=== PATIENT | female | born 1965 | race Two or more races ===

== ENCOUNTER 2017-03-08 16:02 | Emergency (ER) | payer OTHER ==
[~2017-03-08] VITALS: Ht 175.3 cm; Wt 77.1 kg
[2017-03-08 16:35] LABS: Basophils # (auto) 0 uL; Basophils % (auto) 0.6 % (0.0-2.0); Eosinophils # (auto) 0 uL; Eosinophils % (auto) 0.5 % (0.0-7.0); Hematocrit 45.9 % (36.0-46.0); Hemoglobin 15.5 g/dL (12.2-16.2); Lymphocytes # (auto) 1.5 uL; Mean Corpuscular Hemoglobin 31.1 pg (28.0-32.0); Mean Corpuscular Hgb Conc. 33.8 g/dL (32.0-36.0); Mean Corpuscular Volume 92.1 fL (80.0-100.0); Mean Platelet Volume 10.8 fL (6.9-10.8); Monocytes # (auto) 0.3 uL; Neutrophils % (auto) 51.9 % (37.0-80.0); Nucleated Red Blood Cells % 0.1 %; Platelet Count (auto) 197 10^3/uL (140-450); Red Cell Distribution Width 13.2 % (11.8-14.3); White Blood Cell 3.8 10^3/uL (4.4-10.8)
[2017-03-08 16:58] LABS: Albumin 4.3 g/dL (3.4-5.0); Anion Gap 9 (5-15); Aspartate Aminotransferase 26 U/L (15-37); BUN/Creatinine Ratio 14.1; Blood Urea Nitrogen 11 mg/dL (7-18); Calcium 8.8 mg/dL (8.5-10.1); Carbon Dioxide 26 mmol/L (21-32); Chloride 102 mmol/L (98-107); GFR African American 101 mL/min; GFR Non-African American 83 mL/min; Glucose 124 mg/dL (74-106); Magnesium 2.1 mg/dL (1.6-2.6); Sodium 137 mmol/L (136-145)
[2017-03-08 17:03] LABS: Alkaline Phosphatase 67 U/L (45-117); Bilirubin, Total 0.4 mg/dL (0.2-1.0); Total Protein 8.4 g/dL (6.4-8.2)
[2017-03-08 17:08] LABS: Potassium 2.8 mmol/L (3.5-5.1)
[2017-03-08] MEDS ORDERED: POTASSIUM CHL 20 Meq TABLET PO ONE ×2 (17:30→19:15)
[2017-03-08] MEDS ORDERED: ASPirin 81 mg TAB PO ONE (17:30)
[2017-03-08 19:38] VITALS: BP 129/79
== END 2017-03-08 19:42 | disposition home or self-care (01) ==
LOC: ER 16:02
DX: R07.89 Other chest pain (principal); E87.6 Hypokalemia; E07.9 Disorder of thyroid, unspecified
CPT/HCPCS: 36415; 71010; 80053; 83735; 84484; 85025; 93005; 94761